=== PATIENT | female | born 1975 | race Caucasian/White ===

== ENCOUNTER 2016-05-02 15:45 | Outpatient (CLI) | payer BC ==
--- NOTE | 2016-05-02 17:21 | DIAGNOSTIC IMAGING REPORT ---
PROCEDURE: MG BILATERAL SCREENING W/CAD INDICATION: Screening. Baseline. TECHNIQUE: Bilateral CC and MLO digital views. COMPARISON: None FINDINGS: Computer-aided detection applied. Moderately dense. Findings suggest a 1.2 cm ovoid nodular density in the lateral left breast (seen only on CC view). Findings suggest a 1.2 cm ovoid nodular density in the caudal right breast (seen only on MLO view). IMPRESSION: 1. Findings suggest a 1.2 cm nodular densities in the lateral left breast and caudal right breast. Overall appearance suggests these most likely represent cysts or benign nodules. Bilateral breast ultrasound is recommended to further evaluate. RESULT CODE: 0- Incomplete; needs additional evaluation. A. A negative report should not delay biopsy if a dominant or clinically suspicious mass is present. 10-15% of cancers are not identified by x-ray. B. A negative report may reinforce clinical impression. C. Adenosis and dense breasts may obscure an underlying neoplasm. D. False positive reports average 6-10%. E.. A yearly screening mammogram is recommended. A reminder letter will be scheduled.
== END 2016-05-02 23:00 ==
LOC: MAM SRH 15:45
DX: Z12.31 Encounter for screening mammogram for malignant neoplasm of breast (principal)

== ENCOUNTER 2016-05-14 15:52 | Outpatient (CLI) | payer BC ==
--- NOTE | 2016-05-14 18:31 | DIAGNOSTIC IMAGING REPORT ---
PROCEDURE: US LTD BREAST ULTRASOUND - LT INDICATION: Follow-up left breast nodule. TECHNIQUE: High resolution cordon scale and color Doppler sonographic images of the left breast. COMPARISON: Comparison made to screening mammogram study on 05/02/2016. FINDINGS: There is a 1.3 x 0.9 cm ovoid hypoechoic solid nodule in the lateral left breast with mild increased vascularity, and mildly indistinct margins. IMPRESSION: 1. There is a 1.3 x 0.9 cm ovoid nodule in the lateral left breast. While this most likely represents a benign fibroadenoma, the margins are mildly indistinct, and as such, underlying malignant nodule should also be considered. Ultrasound-guided biopsy is recommended. 2. Findings discussed with the patient. 3. Findings called to Dr. Isaac. RESULT CODE: 4- Suspicious abnormality - biopsy should be considered. A. A negative report should not delay biopsy if a dominant or clinically suspicious mass is present. 10-15% of cancers are not identified by x-ray. B. A negative report may reinforce clinical impression. C. Adenosis and dense breasts may obscure an underlying neoplasm. D. False positive reports average 6-10%. E.. A yearly screening mammogram is recommended. A reminder letter will be scheduled.
--- NOTE | 2016-05-14 18:34 | DIAGNOSTIC IMAGING REPORT ---
PROCEDURE: US LTD BREAST ULTRASOUND - RT INDICATION: Follow-up right breast nodule. TECHNIQUE: High resolution cordon scale and color Doppler sonographic images of the right breast. COMPARISON: Comparison is made to screening mammogram on 05/02/2016. FINDINGS: There is a well-circumscribed 1.5 x 1.1 x 0.6 cm ovoid hypoechoic solid nodule in the medial right breast (0300 position). Overall appearance is compatible with a benign fibroadenoma. IMPRESSION: 1. Confirmation of a 1.5 x 0.6 cm well-circumscribed ovoid nodule in the medial right breast which is most compatible with a benign fibroadenoma. Early follow-up right breast ultrasound in 6 months is recommended to confirm stability. 2. Findings discussed with the patient. 3. Findings called to Dr. Isaac. RESULT CODE: 3- Probably benign findings - initial short-interval follow-up suggested. A. A negative report should not delay biopsy if a dominant or clinically suspicious mass is present. 10-15% of cancers are not identified by x-ray. B. A negative report may reinforce clinical impression. C. Adenosis and dense breasts may obscure an underlying neoplasm. D. False positive reports average 6-10%. E.. A yearly screening mammogram is recommended. A reminder letter will be scheduled.
== END 2016-05-14 23:00 ==
LOC: US SRH 15:52
DX: R91.8 Other nonspecific abnormal finding of lung field (principal)

== ENCOUNTER 2016-05-21 15:34 | Outpatient (CLI) | payer BC ==
--- NOTE | 2016-05-21 18:19 | DIAGNOSTIC IMAGING REPORT ---
PROCEDURE: MG UNILATERAL DIAG-LT W/CAD INDICATION: FOLLOW UP LEFT BREAST TECHNIQUE: The study was originally ordered as a ultrasound-guided biopsy of the left breast. However, preliminary ultrasound images failed to demonstrate a significant abnormality, suggesting normal parenchyma in the lateral retroareolar region (rather than a nodular mass lesion). In addition, this area did not correlate with the nodular area seen on the recent mammogram (mammographic nodule more lateral and posterior in location). Because of this, it was felt that it would be best to proceed with further diagnostic imaging of the left breast. In addition to high-resolution left breast ultrasound images (18 MHz), diagnostic mammography was performed including true lateral digital view of the left breast, with CC and MLO spot compression views of the lateral and central left breast (region of concern on prior mammogram. COMPARISON: Comparison is made to bilateral breast ultrasound (05/14/2016) and screening mammogram study (05/02/2016). FINDINGS: MAMMOGRAM: Computer-aided detection applied. Dense parenchymal pattern. However, there is no evidence of mass or suspicious calcification, and there is normal effacement and compression of tissues. BREAST ULTRASOUND: There is no evidence of mass or cyst in the lateral left breast. The parenchymal changes in the lateral retroareolar region of the left breast are most consistent with normal tissue IMPRESSION: 1. Ultrasound-guided left breast biopsy was cancelled as the lesion is not clearly identified, and further diagnostic workup was performed. 2. Follow-up diagnostic mammogram and left breast ultrasound are negative. While there is no evidence of left breast mass, early follow-up left breast ultrasound in 6 months is recommended to confirm stability. 3. There is a 1.5 x 0.6 cm nodule in the medial right breast document on prior ultrasound (05/14/2016). While this is compatible with a benign fibroadenoma, early follow-up right breast ultrasound in 6 months is also recommended to confirm stability. 4. Findings discussed with the patient and her (as requested). 5. Findings called to Dr. Isaac. RESULT CODE: 3- Probably benign findings - initial short-interval follow-up suggested. A. A negative report should not delay biopsy if a dominant or clinically suspicious mass is present. 10-15% of cancers are not identified by x-ray. B. A negative report may reinforce clinical impression. C. Adenosis and dense breasts may obscure an underlying neoplasm. D. False positive reports average 6-10%. E.. A yearly screening mammogram is recommended. A reminder letter will be scheduled.
== END 2016-05-21 23:00 ==
LOC: US SRH 15:34
DX: N63 Unspecified lump in breast (principal); Z53.9 Procedure and treatment not carried out, unspecified reason